=== PATIENT | female | born 1975 | race Caucasian/White ===

== ENCOUNTER 2022-02-21 11:55 | Emergency (ER) | payer BC ==
[2022-02-21 12:56] LABS: CORONAVIRUS COVID-19 NAA POSITIVE (NEGATIVE); INFLUENZA A NAA NEGATIVE (NEGATIVE); INFLUENZA B NAA NEGATIVE (NEGATIVE)
== END 2022-02-21 13:39 | disposition home or self-care (01) ==
LOC: MW.ED 11:55
DX: U07.1 COVID-19 (principal); Z88.5 Allergy status to narcotic agent; Z88.8 Allergy status to other drugs, medicaments and biological substances; Z79.899 Other long term (current) drug therapy
CPT/HCPCS: 0240U; 71045; 87651; 99285; 99283

== ENCOUNTER 2022-03-04 14:19 | Emergency (ER) | payer BC ==
[2022-03-04] MEDS ORDERED: methylPREDNISolone Sodium Succinate 125 MG/2 ML SDV IVPUSH ONE (14:47)
[2022-03-04] MEDS ORDERED: Famotidine 20 MG/2 ML SDV IVPUSH ONE (14:47)
[2022-03-04] MEDS ORDERED: Ondansetron 4 MG/2 ML SDV IVPUSH ONE (14:47)
[2022-03-04] MEDS ORDERED: diphenhydrAMINE 50 MG/ML SDV IVPUSH ONE (14:47)
[2022-03-04] MEDS ORDERED: Sodium Chloride 0.9% 1,000 ML IV ONE (14:47)
[2022-03-04 15:52] LABS: CARBON DIOXIDE,CO2 28.5 mmol/L (21.0-32.0); POTASSIUM,K 3.6 mmol/L (3.5-5.1)
== END 2022-03-04 16:16 | disposition home or self-care (01) ==
LOC: MW.ED 14:19
DX: L50.9 Urticaria, unspecified (principal); Z88.5 Allergy status to narcotic agent; Z86.16 Personal history of COVID-19
CPT/HCPCS: 36415; 71045; 80053; 84484; 84703; 85025; 85610; 85730; 93005; 96361; 96374; 96375; 99284; J1200; J2405; J2930; J3490; J7030; 93010; 99283

== ENCOUNTER 2022-09-30 13:18 | Emergency (ER) | payer BC, MEDICAID ==
[2022-09-30] MEDS ORDERED: traMADol 50 MG Tab PO ONE (14:44)
== END 2022-09-30 15:51 | disposition home or self-care (01) ==
LOC: MW.ED 13:18
DX: S92.351A Displaced fracture of fifth metatarsal bone, right foot, initial encounter for closed fracture (principal); N39.0 Urinary tract infection, site not specified; Z88.5 Allergy status to narcotic agent; Z88.1 Allergy status to other antibiotic agents; Z88.8 Allergy status to other drugs, medicaments and biological substances; Z86.16 Personal history of COVID-19
CPT/HCPCS: 73610; 73630; 81001; 87086; 99283; A9270; 87088; 87186

== ENCOUNTER 2022-11-14 13:32 | Emergency (ER) | payer BC, MEDICAID ==
[2022-11-14] MEDS ORDERED: Lidocaine 2% Viscous Solution 15 ML UD PO ONE (14:11)
[2022-11-14] MEDS ORDERED: diphenhydrAMINE 12.5 MG/5 ML Liquid 5 ML UD Cup PO STA (14:11)
[2022-11-14] MEDS ORDERED: Aluminum Hydroxide/Magnesium Hydroxide/Simethicone XS Susp 30 ML Cup PO ONE (14:11)
== END 2022-11-14 15:14 | disposition home or self-care (01) ==
LOC: MW.ED 13:32
DX: J02.0 Streptococcal pharyngitis (principal); J45.909 Unspecified asthma, uncomplicated; E66.9 Obesity, unspecified; Z88.1 Allergy status to other antibiotic agents; Z88.8 Allergy status to other drugs, medicaments and biological substances
CPT/HCPCS: 87651; 99283; A9270